=== PATIENT | male | born 1950 | race Caucasian/White ===

== ENCOUNTER 2019-07-31 08:00 | Inpatient (IN) | payer OTHER ==
[2019-07-15 12:26] VITALS: BMI 30.4
[2019-07-31] MEDS ORDERED: TRANEXAMIC ACID 1000 MG/10 ML VIAL IVPUSH ONE (09:46)
[2019-07-31] MEDS ORDERED: VANCOMYCIN 1,000 MG in DEXTROSE 5%-WATER - 250 ML IVPB ONE (09:46)
[2019-07-31] MEDS ORDERED: CEFAZOLIN 2 GM in DEXTROSE 5%-WATER - 50 ML IVPB ONE (09:46)
[2019-07-31] MEDS ORDERED: BUPIVACAINE HCL/PF 0.5% (5 MG/ML) 30 ML VIAL IJ ONE (11:30)
[2019-07-31] MEDS ORDERED: DEXAMETHASONE SOD PHOSPHATE/PF 10 MG/ML SDV ONE (11:30)
[2019-07-31] MEDS ORDERED: MIDAZOLAM HCL 2 MG/2 ML SINGLE DOSE VIAL ONE (11:30)
[2019-07-31] MEDS ORDERED: ONDANSETRON 4 MG/2 ML VIAL IVPUSH PRN ×2 (12:18→15:41)
[2019-07-31] MEDS ORDERED: PROMETHAZINE HCL 25 MG/1 ML VIAL IVPUSH PRN (12:18)
[2019-07-31] MEDS ORDERED: LACTATED RINGERS SOLUTION 1,000 ML IV SCH ×2 (12:30→15:45)
[2019-07-31] MEDS ORDERED: BUPIVACAINE HCL/PF 0.5% (5MG/ML) 10 ML VIAL ONE (12:47)
[2019-07-31] MEDS ORDERED: PROPOFOL 20 ML ONE ×4 (13:02→14:40)
[2019-07-31] MEDS ORDERED: ePHEDrine SULFATE 50 MG/1 ML AMPULE ONE (13:20)
[2019-07-31] MEDS ORDERED: TRANEXAMIC ACID 1000 MG/10 ML VIAL ONE (14:46)
[2019-07-31] MEDS ORDERED: ceFAZolin SODIUM 1 GM VIAL ONE (14:46)
[2019-07-31] MEDS ORDERED: BENZOIN/ALOE VERA/STORAX/TOLU 58 ML BOTTLE ONE (15:35)
[2019-07-31] MEDS ORDERED: MAG HYDROX/AL HYDROX/SIMETH 30 ML UNIT-DOSE CUP PO PRN (15:41)
[2019-07-31] MEDS ORDERED: MAGNESIUM HYDROX 2400MG/30ML ORAL SUSPENSION 30 ML CUP PO PRN (15:41)
--- NOTE | 2019-07-31 15:53 | PN ---
Progress Note (short form) - Note Progress Note: 68M s/p LEFT total hip replacement POD #0. -Pain control: per anaesthesia team. -DVT PPx: -Chemical: ASA 81mg PO BID x 6 weeks. -Mechanical: TANIKA's, SCD's. -Incentive spirometry q15 min. -PT/OT/Rehab, OOB. -WBAT LLE. -L hip precautions; abduction pillow. -Post-op Ancef x 3 doses. -d/c Choi at midnight & f/u post-op TOV: 8 hours max. -f/u AM labs. -Diet as tolerated. -Care per medical hospitalist team. -Discharge planning: f/u [facility] [place] [facility] 08/08/2019; call for appointment . -Will follow. Navi Jeffries MD (Orthopaedic Surgery).
--- NOTE | 2019-07-31 15:57 | OP ---
Operative Note - Note: Operative Date: 07/31/19 Pre-Operative Diagnosis: Left hip DJD Operation: Left BOYD Implants: Debora. Cup - Trident II-Tritanium 58mm. Poly - 28mm, neutral. Stem - Accolade II, #1, 127 deg NSA, high offset. Head - 28mm, standard Biolox/ Delta Ceramic Post-Operative Diagnosis: Same as Pre-op Surgeon: Navi Jeffries Expeller Operator: Harjit Jeffries Anesthesiologist/WIND TURBINE SERVICE TECHNICIAN: Srinivasa Friedman Anesthesia: Spinal Specimens Removed: Left femoral head Estimated Blood Loss (mls): 200 Fluid Volume Replaced (mls): 1,000 (Crystalloid) Operative Report Dictated: Yes
[2019-07-31] MEDS ORDERED: PANTOPRAZOLE 20 MG TABLET (FP) PO SCH (16:30)
--- NOTE | 2019-07-31 16:38 | HP ---
HISTORY OF PRESENT ILLNESS: 68 year-old male with a PMH significant for HTN, HLD, atrial fibrillation >10 years ago, chronic kidney disease, BPH, GERD, Hep A (remote), anxiety, and degenerative joint disease s/p left total hip replacement today with Dr. Navi Jeffries. 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 Smoking: smoked as a teenager Alcohol: 10 shots of liquor per week Drugs: cocaine, marijuana Family history: mother DM; father liver disease Allergies No Known Allergies Allergy (Verified 07/15/19 11:57) HOME MEDICATIONS: Home Medications Medication Instructions Recorded Atorvastatin Ca [Lipitor] 10 mg PO HS 07/15/19 Esomeprazole Magnesium [Nexium 20 mg PO DAILY 07/15/19 24Hr] Finasteride 5 mg PO DAILY 07/15/19 Hydrochlorothiazide [Hctz -] 25 mg PO DAILY 07/15/19 Lisinopril [Zestril] 40 mg PO DAILY 07/15/19 Verapamil HCl [Verapamil ER] 240 mg PO HS 07/15/19 traMADol HCL [Ultram] 50 mg PO Q6H 07/15/19 REVIEW OF SYSTEMS CONSTITUTIONAL: Absent: fever, chills, diaphoresis, generalized weakness, malaise, loss of appetite, weight change HEENT: Absent: rhinorrhea, nasal congestion, throat pain, throat swelling, difficulty swallowing, mouth swelling, ear pain, eye pain, visual changes CARDIOVASCULAR: Absent: chest pain, syncope, palpitations, irregular heart rate, lightheadedness , peripheral edema RESPIRATORY: Absent: cough, shortness of breath, dyspnea with exertion, orthopnea, wheezing, stridor, hemoptysis GASTROINTESTINAL: Absent: abdominal pain, abdominal distension, nausea, vomiting, diarrhea, constipation, melena, hematochezia GENITOURINARY: Absent: dysuria, frequency, urgency, hesitancy, hematuria, flank pain, genital pain MUSCULOSKELETAL: Absent: myalgia, arthralgia, joint swelling, back pain, neck pain SKIN: Absent: rash, itching, pallor HEMATOLOGIC/IMMUNOLOGIC: Absent: easy bleeding, easy bruising, lymphadenopathy, frequent infections ENDOCRINE: Absent: unexplained weight gain, unexplained weight loss, heat intolerance, cold intolerance NEUROLOGIC: Absent: headache, focal weakness or paresthesias, dizziness, unsteady gait, seizure, mental status changes, bladder or bowel incontinence PSYCHIATRIC: Absent: anxiety, depression, suicidal or homicidal ideation, hallucinations. PHYSICAL EXAMINATION Vital Signs - 24 hr 07/31/19 07/31/19 07/31/19 11:09 15:58 16:05 Temperature 98.3 F 97.9 F Pulse Rate 63 73 74 Respiratory 16 16 16 Rate Blood Pressure 147/84 123/70 130/82 O2 Sat by Pulse 96 96 Oximetry (%) GENERAL: Awake, alert, and fully oriented, in no acute distress. HEAD: Normal with no signs of trauma. EYES: Pupils equal, round and reactive to light, extraocular movements intact, sclera anicteric, conjunctiva clear. No lid lag. EARS, NOSE, THROAT: Ears normal, nares patent, oropharynx clear without exudates. Moist mucous membranes. NECK: Normal range of motion, supple without lymphadenopathy, JVD, or masses. LUNGS: Breath sounds equal, clear to auscultation bilaterally. No wheezes, and no crackles. No accessory muscle use. HEART: Regular rate and rhythm, normal S1 and S2 without murmur, rub or gallop. ABDOMEN: Soft, nontender, not distended, normoactive bowel sounds, no guarding, no rebound, no masses. No hepatomegaly or splenomegaly. MUSCULOSKELETAL: Normal range of motion at all joints. No bony deformities or tenderness. No CVA tenderness. UPPER EXTREMITIES: 2+ pulses, warm, well-perfused. No cyanosis. No clubbing. No peripheral edema. LOWER EXTREMITIES: 2+ pulses, warm, well-perfused. No calf tenderness. No peripheral edema. NEUROLOGICAL: Cranial nerves II-XII intact. Normal speech. Normal gait. PSYCHIATRIC: Cooperative. Good eye contact. Appropriate mood and affect. SKIN: Warm, dry, normal turgor, no rashes or lesions noted, normal capillary refill. Pre op Hgb 14.2 BUN 14 Cr 0.9 Intra op Vanc x 1g; Ancef x 3g EBL 200cc LR 1200cc ASSESSMENT/PLAN: 68 year-old male with a PMH significant for HTN, HLD, atrial fibrillation >10 years ago, chronic kidney disease, BPH, GERD, Hep A (remote), anxiety, and degenerative joint disease s/p left total hip replacement today with Dr. Navi Jeffries. Left total hip replacement --POD #0 --perioperative antibiotics per surgery --pain management per surgery --ASA 81mg BID --protonix --bowel regimen --incentive spirometry BPH Hematuria --immediate post op course: souza was removed and blood was noted with souza removal; 14f coudet catheter was placed, with bloody urine return. Urology consulted, perform blader irrigation q4h with sterile water; notify hospitalist if UOP drops below 30cc/hour --strict I&Os --continue Proscar --type and screen Hypertension --BP stable --resume lisinopril, verapramil, HCTZ in morning Hyperlipidemia --resume statin in morning Atrial fibrillation --review of pre-op physical states afib >10 years ago --not on anticoagulation --pre-op ECG: sinus rhythm --repeat ECG Chronic kidney disease --check bmp in am GERD --protonix FEN Fluids: LR@125mL/hr Electrolytes: replete as indicated Nutrition: regular diet DVT prophylaxis: OOB, ambulation, SCDs, TEDs, ASA 81mg BID Physical therapy Dispo: continues to require inpatient care. Full code. Visit type - Emergency Visit Emergency Visit: Yes ED Registration Date: 07/31/19 Care time: The patient presented to the Emergency Department on the above date and was hospitalized for further evaluation of their emergent condition. - New Patient This patient is new to me today: Yes Date on this admission: 07/31/19 - Critical Care Critical Care patient: No
--- NOTE | 2019-07-31 17:18 | PN ---
Progress Note (short form) - Note Progress Note: 14 palestinian coude catheter placed in the recovery s/p souza removal in the OR and blood noted with souza removal. Pt with a history of BPH. 14 palestinian catheter placed easily under sterile technique. BLood tinged urine noted immediately which then became darker, no clots visualized and urine draining well. 150ml drained when catheter was placed. Spoke with Dr. Early and ordered bladder irrigation every 4 hours with sterile water. Consult placed for their urology group. Will continue proscar in the am.
[2019-07-31] MEDS: CEFAZOLIN 2 GM/D5W 2 GM/50 ML ML IVPB SCH ×2 (17:25→21:04)
[2019-07-31] MEDS: ATORVASTATIN CA 10 MG TABLET (FP) PO SCH ×2 (21:05→21:13)
[2019-07-31] MEDS: SENNOSIDES/DOCUSATE COMBO (SENNA PLUS) TABLET (UD) PO SCH (21:05)
[2019-07-31] MEDS: VERAPAMIL HCL 240 MG E.R. TABLET PO SCH (21:05)
[2019-07-31] MEDS: ASPIRIN COATED 81 MG TABLET.EC PO SCH (21:05)
[2019-07-31] MEDS ORDERED: morphine CARPU-JECT 2 MG/1 ML DISP.SYRIN IVPUSH ONE (21:58)
[2019-07-31] MEDS ORDERED: ACETAMINOPHEN 1000 MG/100 ML VIAL (NON FORMULARY) IVPB ONE (22:00)
--- NOTE | 2019-07-31 22:09 | OP ---
DATE OF OPERATION: 07/31/2019 PREOPERATIVE DIAGNOSIS: Left hip degenerative joint disease. POSTOPERATIVE DIAGNOSIS: Left hip degenerative joint disease. PROCEDURE PERFORMED: Left total hip replacement. IMPLANTS: Debora, cup 58, polyethylene 28, stem number 1, head 28. SURGEON: Navi Jeffries MD CORE RESCUER: Harjit Jeffries MD ANESTHESIA: Spinal and sedation. ESTIMATED BLOOD LOSS: 200 mL. INTRAVENOUS FLUIDS: Crystalloid 1 L. The remainder of this dictation will be inserted via [facility]. Navi Jeffries MD [id number]
[2019-07-31] MEDS: oxyCODONE HCL 5 MG TABLET PO PRN (23:01)
[2019-08-01] MEDS: CEFAZOLIN 2 GM/D5W 2 GM/50 ML ML IVPB SCH (03:51)
[2019-08-01] MEDS: ACETAMINOPHEN 325 MG TABLET (FP) PO SCH ×3 (05:51→17:07)
[2019-08-01 08:05] LABS: HEMATOCRIT 39.6 % (35.4-49); MCH 32.3 pg (25.7-33.7); MCHC 32.9 g/dl (32.0-35.9); MEAN CELL VOLUME 98.3 fl (80-96); MEAN PLT VOLUME 9.4 fl (7.5-11.1); PLATELET COUNT 277 K/MM3 (134-434); RBC 4.03 M/mm3 (4.00-5.60); RDW 12.6 % (11.9-15.9); WHITE BLOOD COUNT 11.7 K/mm3 (4.0-10.8)
--- NOTE | 2019-08-01 08:05 | PN ---
Progress Note (short form) - Note Progress Note: ORTHOPAEDIC SURGERY POD #1 s/p Left THR. No acute events since surgery per RN notes. Alert. Sitting in chair at bedside with hip abduction pillow in place (without straps). States he's gotten OOB and ambulated with rolling walker to bathroom. Denies n/v/f/c, CP, palpitations, SOB or [place]. Last Vital Signs Temp Pulse Resp BP Pulse Ox 99.0 F 89 18 139/79 98 08/01/19 04:00 08/01/19 04:00 08/01/19 04:00 08/01/19 04:00 08/01/19 04:00 Output 07/31/19 08/01/19 20:40 06:00 Souza (sanguinous) 400 400 Gen:nad LE: Left hip jumpstart dressing place. no hematoma. abduction pillow in place. SCDs bilat. All compartments soft/nt bilat. Palpable DP/PT. : souza to gravity. No clots. bloody but evidence of clearing as urine in line is light pink. Problem List - Problems (1) Degenerative joint disease of left hip Assessment/Plan: 68 yo male POD #1 s/p Left BOYD. A souza cath was replaced in the PACU ( traumatic insertion?). Souza remains in place and draining to gravity (bloody with signs of clearing/no clots). His Urologist is Dr. Archie Saleh at [facility] -- called this morning and left message regarding souza. GOALS FOR TODAY 1. Pain control 2. Incentive Spirometer 3. DVT PPX via ASA 81 mg PO BID x 6 weeks and TEDs/SCDs 4. OOB and ambulate with PT 5. WBAT LLE 6. Posterior Left hip precaution 7. f/u Labs 8. Cont to monitor UOP and record q shift 9. Hip abduction pillow 10. Await call back from Dr. Archie Saleh 11. DC planning 08/02/19 to home. 12. f/u [facility] [place] office. Call for an appointment Above plan discussed with Dr. Harjit Jeffries and agrees. Code(s): M16.12 - UNILATERAL PRIMARY OSTEOARTHRITIS, LEFT HIP (2) BPH (benign prostatic hyperplasia) Code(s): N40.0 - BENIGN PROSTATIC HYPERPLASIA WITHOUT LOWER URINRY TRACT SYMP (3) HTN (hypertension) Code(s): I10 - ESSENTIAL (PRIMARY) HYPERTENSION (4) Afib Code(s): I48.91 - UNSPECIFIED ATRIAL FIBRILLATION
[2019-08-01 08:10] LABS: CALCIUM 8.3 mg/dl (8.5-10); CREATININE 0.8 mg/dl (0.55-1.3); MAGNESIUM 1.5 mg/dL (1.8-2.4); POTASSIUM 3.9 mmol/L (3.5-5.1)
[2019-08-01] MEDS: oxyCODONE HCL 5 MG TABLET PO PRN ×3 (08:35→21:23)
[2019-08-01] MEDS: ASPIRIN COATED 81 MG TABLET.EC PO SCH ×2 (09:26→21:23)
[2019-08-01] MEDS: HYDROCHLOROTHIAZIDE 25 MG TABLET (FP) PO SCH (09:27)
[2019-08-01] MEDS: SENNOSIDES/DOCUSATE COMBO (SENNA PLUS) TABLET (UD) PO SCH ×2 (09:27→21:24)
[2019-08-01] MEDS: FINASTERIDE 5 MG TABLET (FP) PO SCH (09:28)
[2019-08-01] MEDS: LISINOPRIL 20 MG TABLET (FP) PO SCH (09:28)
[2019-08-01] MEDS: PANTOPRAZOLE 40 MG TABLET (FP) PO SCH (09:28)
--- NOTE | 2019-08-01 10:31 | PN ---
Progress Note (short form) - Note Progress Note: S:Pt complains of left hip pain Denies paresthesias Denies N/V O:VSS AOx3 A/P:POD#1 s/p left hip arthoplasty No apparent anesthesia complications Cont. current pain regimen
--- NOTE | 2019-08-01 10:44 | EKG ---
Test Reason : Blood Pressure : / mmHG Vent. Rate : 095 BPM Atrial Rate : 095 BPM P-R Int : 218 ms QRS Dur : 102 ms QT Int : 382 ms P-R-T Axes : 057 054 048 degrees QTc Int : 480 ms SINUS RHYTHM WITH 1ST DEGREE A-V BLOCK CANNOT RULE OUT ANTERIOR INFARCT , AGE UNDETERMINED ABNORMAL ECG NO PREVIOUS ECGS AVAILABLE Confirmed by MEENU SOTO MD ([id number]) on 08/01/2019 10:44:41 AM Referred By: Navi Jeffries Confirmed By:MEENU SOTO MD
--- NOTE | 2019-08-01 13:49 | PN ---
Physical Exam: SUBJECTIVE: Patient seen and examined oob to chair. Pain is better controlled but still 8/10. OBJECTIVE: Vital Signs Period Temp Pulse Resp BP Sys/Mcgarry Pulse Ox Last 24 Hr 97.4 F-99.5 F 54-95 16-20 123-139/59-82 95-98 GENERAL: The patient is awake, alert, and fully oriented, in no acute distress. LUNGS: Breath sounds equal, clear to auscultation bilaterally, no wheezes, no crackles, no accessory muscle use. HEART: Regular rate and rhythm, S1, S2 ABDOMEN: Soft, nontender, nondistended LLE: Left hip surgical dressing c/d/i, no surrounding erythema, swelling, fluctance; no drain NEUROLOGICAL: Cranial nerves II through XII grossly intact. Normal speech, gait not observed. Abductor pillow in place. Laboratory Results - last 24 hr 07/31/19 07/31/19 08/01/19 07:17 22:00 07:17 WBC 11.7 H RBC 4.03 Hgb 13.0 Hct 39.6 MCV 98.3 H MCH 32.3 MCHC 32.9 RDW 12.6 Plt Count 277 MPV 9.4 Sodium Potassium Chloride Carbon Dioxide Anion Gap BUN Creatinine Est GFR (CKD-EPI)AfAm Est GFR (CKD-EPI)NonAf Random Glucose Calcium Magnesium Blood Type O NEGATIVE O NEGATIVE Antibody Screen Negative 08/01/19 07:17 WBC RBC Hgb Hct MCV MCH MCHC RDW Plt Count MPV Sodium 133 L Potassium 3.9 Chloride 100 Carbon Dioxide 27 Anion Gap 6 L BUN 13.0 Creatinine 0.8 Est GFR (CKD-EPI)AfAm 107.89 Est GFR (CKD-EPI)NonAf 93.09 Random Glucose 170 H Calcium 8.3 L Magnesium 1.5 L Blood Type Antibody Screen Active Medications Generic Name Dose Route Start Last Admin Trade Name Freq PRN Reason Stop Dose Admin Acetaminophen 650 mg 08/01/19 06:00 08/01/19 05:51 Tylenol - PO 08/02/19 12:01 650 mg Q6H NINA Administration Al Hydroxide/Mg Hydroxide 30 ml 07/31/19 15:41 Mylanta Oral Suspension - PO Q4H PRN DYSPEPSIA Aspirin 81 mg 07/31/19 22:00 08/01/19 09:26 Ecotrin - PO 81 mg BID INNA Administration Atorvastatin Calcium 10 mg 07/31/19 22:00 07/31/19 21:13 Lipitor - PO Not Given HS NINA Finasteride 5 mg 08/01/19 10:00 08/01/19 09:28 Proscar - PO 5 mg DAILY NINA Administration Hydrochlorothiazide 25 mg 08/01/19 10:00 08/01/19 09:27 Hctz - PO 25 mg DAILY NINA Administration Lactated Ringer's 1,000 mls @ 125 mls/hr 07/31/19 12:30 07/31/19 17:24 Lactated Ringers Solution IV Not Given ASDIR NINA Lisinopril 40 mg 08/01/19 10:00 08/01/19 09:28 Prinivil PO 40 mg DAILY NINA Administration Magnesium Hydroxide 30 ml 07/31/19 15:41 08/01/19 08:35 Milk Of Magnesia - PO 30 ml PRN PRN Administration CONSTIPATION Ondansetron HCl 4 mg 07/31/19 15:41 Zofran Injection IVPUSH Q6H PRN NAUSEA Oxycodone HCl 5 mg 07/31/19 21:58 Roxicodone - PO Q4H PRN PAIN LEVEL 4 - 6 Oxycodone HCl 10 mg 07/31/19 22:00 08/01/19 08:35 Roxicodone - PO 10 mg Q4H PRN Administration PAIN LEVEL 7 - 10 Pantoprazole Sodium 40 mg 08/01/19 10:00 08/01/19 09:28 Protonix - PO 40 mg DAILY NINA Administration Senna/Docusate Sodium 2 tablet 07/31/19 22:00 08/01/19 09:27 Pericolace - PO 2 tablet BID NINA Administration Verapamil HCl 240 mg 07/31/19 22:00 07/31/19 21:05 Calan Sr - PO 240 mg HS NINA Administration ASSESSMENT/PLAN 68 year-old male with a PMH significant for HTN, HLD, atrial fibrillation >10 years ago, chronic kidney disease, BPH, GERD, Hep A (remote), anxiety, and degenerative joint disease s/p left total hip replacement today with Dr. Navi Jeffries. Left total hip replacement --POD #1 --perioperative antibiotics per surgery --pain management per surgery --ASA 81mg BID --protonix --bowel regimen --incentive spirometry BPH Hematuria --souza in place, urine is brownish-red, no clots --awaiting urology arrival --strict I&Os --continue Proscar --h/h stable Hypertension --BP stable --continue lisinopril, verapramil, HCTZ in morning Hyperlipidemia --continue statin in morning Atrial fibrillation --single episode >10 years ago --not on anticoagulation --07/31 ECG: sinus rhythm @ 94bpm, 1st degree block Chronic kidney disease --BUN/Cr stable GERD --protonix Hypomagnesemia --replete FEN Fluids: PO intake adequate Electrolytes: replete as indicated Nutrition: regular diet DVT prophylaxis: OOB, ambulation, SCDs, TEDs, ASA 81mg BID Physical therapy Dispo: continues to require inpatient care. Full code. Visit type - Emergency Visit Emergency Visit: No - New Patient This patient is new to me today: No - Critical Care Critical Care patient: No
[2019-08-01] MEDS ORDERED: MAGNESIUM OXIDE 400 MG TABLET (FP) PO ONE (14:00)
[2019-08-01] MEDS: CEFAZOLIN 1 GM/D5W 1 GM/50 ML BAG IVPB SCH (20:17)
[2019-08-01] MEDS ORDERED: PT OWN MED DRAWER 7, Y5N ONE (21:08)
[2019-08-01] MEDS: VERAPAMIL HCL 240 MG E.R. TABLET PO SCH (21:24)
[2019-08-01] MEDS: ATORVASTATIN CA 10 MG TABLET (FP) PO SCH (21:24)
[2019-08-02] MEDS: CEFAZOLIN 1 GM/D5W 1 GM/50 ML BAG IVPB SCH ×2 (03:17→10:34)
[2019-08-02] MEDS: ACETAMINOPHEN 325 MG TABLET (FP) PO SCH ×3 (05:21→12:35)
[2019-08-02 05:50] VITALS: BP 142/74; PULSE 98; TEMP 100
[2019-08-02] MEDS: oxyCODONE HCL 5 MG TABLET PO PRN ×2 (06:27→10:12)
[2019-08-02 08:08] LABS: HEMATOCRIT 40.2 % (35.4-49); HEMOGLOBIN 13.2 GM/dl (11.7-16.9); MCH 32.4 pg (25.7-33.7); MCHC 32.8 g/dl (32.0-35.9); MEAN CELL VOLUME 98.9 fl (80-96); MEAN PLT VOLUME 9.2 fl (7.5-11.1); PLATELET COUNT 306 K/MM3 (134-434); RBC 4.07 M/mm3 (4.00-5.60); WHITE BLOOD COUNT 14.5 K/mm3 (4.0-10.8)
[2019-08-02] MEDS ORDERED: TAMSULOSIN HCL 0.4 MG CAP PO SCH (08:30)
--- NOTE | 2019-08-02 09:33 | PN ---
Progress Note (short form) - Note Progress Note: POD#2 PT without any complaints today. OOB and ambulating. Had a BM and is tolerating a diet. Vital Signs Period Temp Pulse Resp BP Sys/Mcgarry Pulse Ox Last 24 Hr 97.9 F-100.0 F 77-100 18-20 137-142/73-79 Souza: 3400ml, light pink urine, no clots GEN: A&0x3, NAD CV: RRR Lungs: CTA b/l ABD: soft, non-distended, non-tender. LE: no calf tenderness or swelling b/l. TANIKA/SCDS in place. CBC, BMP /06/ 07:47 // 07:17 A/p: s/p Left hip surgery with traumatic souza insertion Pt doing well surgcially Souza cath removed today for TOV, continue proscar IF able to void, pt may be discharged to home D/w Dr. Jeffries Pt to continue colace to avoid straining which may result in further hematuria
[2019-08-02] MEDS: ASPIRIN COATED 81 MG TABLET.EC PO SCH (10:11)
[2019-08-02] MEDS: HYDROCHLOROTHIAZIDE 25 MG TABLET (FP) PO SCH (10:11)
[2019-08-02] MEDS: FINASTERIDE 5 MG TABLET (FP) PO SCH (10:12)
[2019-08-02] MEDS: LISINOPRIL 20 MG TABLET (FP) PO SCH (10:12)
[2019-08-02] MEDS: PANTOPRAZOLE 40 MG TABLET (FP) PO SCH (10:12)
[2019-08-02] MEDS: SENNOSIDES/DOCUSATE COMBO (SENNA PLUS) TABLET (UD) PO SCH (10:12)
--- NOTE | 2019-08-02 10:16 | DS ---
Physical Exam: SUBJECTIVE: Patient seen and examined. Pain better managed than yesterday. OBJECTIVE: Vital Signs Period Temp Pulse Resp BP Sys/Mcgarry Pulse Ox Last 24 Hr 97.9 F-100.0 F 77-100 18-20 137-142/73-79 PHYSICAL EXAM GENERAL: The patient is awake, alert, and fully oriented, in no acute distress. LUNGS: Breath sounds equal, clear to auscultation bilaterally, no wheezes, no crackles, no accessory muscle use. HEART: Regular rate and rhythm, S1, S2 ABDOMEN: Soft, nontender, nondistended LLE: Left hip surgical dressing c/d/i, no surrounding erythema, swelling, fluctance; no drain NEUROLOGICAL: Cranial nerves II through XII grossly intact. Normal speech, gait not observed. Abductor pillow in place. LABS Laboratory Results - last 24 hr 08/02/19 07:47 WBC 14.5 H RBC 4.07 Hgb 13.2 Hct 40.2 MCV 98.9 H MCH 32.4 MCHC 32.8 RDW 13.0 Plt Count 306 MPV 9.2 HOSPITAL COURSE: Date of Admission:07/31/19 Date of Discharge: 08/02/19 68 year-old male with a PMH significant for HTN, HLD, atrial fibrillation >10 years ago, chronic kidney disease, BPH, GERD, Hep A (remote), anxiety, and degenerative joint disease s/p left total hip replacement. Left total hip replacement --discharged on POD #2 --perioperative antibiotics complete --pain well managed on PO meds --ASA 81mg BID BPH Hematuria --post op course complicated by hematuria following intra op souza placement ; over course of 48 hours post op urine cleared, no clots were observed; souza was dc'd and patient voiding freely at time of discharge; h/h remained stable --continued on home dose Proscar Hypertension --BP stable --continued lisinopril, verapramil, HCTZ Hyperlipidemia --continued statin Atrial fibrillation --single episode >10 years ago --not on anticoagulation --07/31 ECG: sinus rhythm @ 94bpm, 1st degree block Chronic kidney disease --BUN/Cr stable GERD --protonix Minutes to complete discharge: 35 Discharge Summary Problems reviewed: Yes Reason For Visit: BILATERAL PRIMARY OSTEOARTHRITIS OF HIP Current Active Problems Afib (Acute) BPH (benign prostatic hyperplasia) (Acute) Degenerative joint disease of left hip (Acute) HTN (hypertension) (Acute) Condition: Improved - Instructions Diet, Activity, Other Instructions: Dr. Jeffries Discharge Instructions for Hip Replacement Post Operative Instructions Physical activity Physical Therapist will come to your home for the first 5 days. You will be set up with outpatient PT at your first post-operative visit. Use assistive devices for ambulation at all times. Weight bearing as tolerated on your surgical side. Wound care Leave your surgical dressing in place. Do not change the dressing until seen by your surgeon in the office. No baths or showers. Do not submerge your incision. Do not apply any ointments or lotions to your incision. Please call the office if your dressing is soiled/dirty or is falling off. Apply Graduated Compression Stockings (TEDS) to both lower extremities-remove daily for hygiene ONLY. Diet There are no dietary restrictions. Eat healthy, high-fiber foods. Drink 6 to 8 glasses of liquid each day. This will assist in keeping your bowels are regular. Pain management Any pain prescription medication ordered should be taken as prescribed for moderate to severe pain. Do not take additional Tylenol while taking Percocet. Posterior Hip Precautions: Do not cross the leg you had surgery on over your other leg. (Do not cross your legs.)Use an elevated toilet seat. Do not sit on low chairs or beds. Use purple pillow (abductor) when lying in bed. Take Aspirin 81 mg two times a day for a total of 6 weeks to prevent blood clots. ISTOP: Reference #: [id number] Rx Written Rx Dispensed Drug Quantity Days Supply Prescriber Name 07/19/2019 07/28/2019 tramadol hcl 50 mg tablet 40 [address] Odalis Murillo PAC Call Dr. Jeffries for any of the following: Severe pain not relieved by medication Fever of 101 or higher Excessive bleeding or drainage on dressing Inability to urinate If you experience chest pain or shortness of breath, please seek emergency care immediately. Please call the office at to confirm your post-op appointment for the week following surgery. Referrals: Navi Jeffries MD [Staff Physician] - Disposition: HOME - Home Medications Comprehensive Discharge Medication List: Ambulatory Orders Atorvastatin Ca [Lipitor] 10 mg PO HS 07/15/19 Esomeprazole Magnesium [Nexium 24Hr] 20 mg PO DAILY 07/15/19 Finasteride 5 mg PO DAILY 07/15/19 Hydrochlorothiazide [Hctz -] 25 mg PO DAILY 07/15/19 Lisinopril [Zestril] 40 mg PO DAILY 07/15/19 Verapamil HCl [Verapamil ER] 240 mg PO HS 07/15/19 Aspirin Coated [Ecotrin -] 81 mg PO BID #90 tablet.ec 08/02/19 Docusate Sodium [Colace] 100 mg PO TID #30 capsule 08/02/19 Oxycodone HCl/Acetaminophen [Percocet 5-325 mg Tablet] 1 - 2 tab PO Q6H PRN #40 tab MDD 8 08/02/19 This patient is new to me today: No Emergency Visit: No Critical Care patient: No - Discharge Referral Referred to [facility] No
--- NOTE | 2019-08-02 15:41 | PATH ---
Surgical Pathology Report Patient Name: VIANEY COVINGTON Med. Rec. #: [id number] /Age/Gender: 1950 (Age: 68) / M Account: [id number] Location: [facility] MED-SURG Taken: 07/31/2019 Received: 07/31/2019 Reported: 08/02/2019 Physicians: Navi Jeffries M.D. Specimen(s) Received LEFT FEMORAL HEAD Clinical History Osteoarthritis left hip Final Diagnosis BONE, FEMORAL HEAD, LEFT, TOTAL HIP REPLACEMENT: BONE WITH DEGENERATIVE JOINT DISEASE. Electronically Signed Lina Feliciano M.D. Gross Description Received in formalin, labeled "left femoral head," is a 4.7 x 4.7 x 4.2 cm. femoral head with a 1.2 cm length portion of femoral leg attached. The margin of resection is smooth. There is a 4.6 cm greatest dimension area of eburnation present. The remaining articular surface is alfonso-yellow and diffusely granular. The underlying trabecular bone is yellow and hard. A promotional representative section is submitted in one cassette, following decalcification. 08/01/2019 [facility]08/01/2019
== END 2019-08-02 13:55 | disposition home or self-care (01) | DRG 470 ==
LOC: FM/S 09:42
PROVIDERS: ADMIT Orthopaedic Surgery Orthopaedic Surgery of the Spine; ATTEND Nurse Practitioner Acute Care
PROC: 0SRB03Z Replacement of Left Hip Joint with Ceramic Synthetic Substitute, Open Approach (ICD-10-PCS; principal; 2019-07-31 13:47)
DX: M16.12 Unilateral primary osteoarthritis, left hip (principal); I12.9 Hypertensive chronic kidney disease with stage 1 through stage 4 chronic kidney disease, or unspecified chronic kidney disease; I48.91 Unspecified atrial fibrillation; R31.9 Hematuria, unspecified; K21.9 Gastro-esophageal reflux disease without esophagitis; E78.5 Hyperlipidemia, unspecified; N18.9 Chronic kidney disease, unspecified; E83.42 Hypomagnesemia; N40.0 Benign prostatic hyperplasia without lower urinary tract symptoms
CPT/HCPCS: 36415; 73523-TC-FY; 80048; 83735; 85027; 86850; 86900; 86901; 88305-TC; 88311-TC; 93005; 94760; 97116-GP; 97163-GP; J0131